=== PATIENT | female | born 1980 | race Caucasian/White ===

== ENCOUNTER 2022-06-18 22:44 | Emergency (ER) | payer MEDICAID ==
[~2022-06-18] VITALS: Ht 162.6 cm; Wt 90.7 kg
[2022-06-18 23:40] LABS: HEMOGLOBIN 11.1 gm/dl (12.3-15.3); RED BLOOD COUNT 4.46 M/UL (4.00-5.10)
[2022-06-19 00:01] LABS: BUN/CREATININE RATIO 19 (0-10)
[2022-06-19] MEDS ORDERED: ADULT LOW DOSE81 MG PO (10:47)
[2022-06-19] MEDS ORDERED: ADVIL200 MG PO (10:47)
[2022-06-19] MEDS ORDERED: SODIUM CHLORIDE (11:27)
[2022-06-19] MEDS ORDERED: KEPPRA 500 MG500 MG PO (11:27)
[2022-06-19] MEDS ORDERED: DUONEBS (11:27)
[2022-06-19] MEDS ORDERED: PULMICORT (11:27)
[2022-06-19] MEDS ORDERED: MERREM (11:27)
[2022-06-19] MEDS ORDERED: AMLODIPINE BESYL5 MG PO (11:27)
[2022-06-19] MEDS ORDERED: VANCO (11:27)
[2022-06-19] MEDS ORDERED: [UNRECOGNIZED DRUG - OTHER] (11:27)
== END 2022-06-19 13:50 | disposition left against medical advice (07) ==
LOC: ER1 22:44 → CDU 06-19 08:07 → ER1 06-19 08:07
PROVIDERS: Emergency Medicine
DX: A41.9 Sepsis, unspecified organism (principal); L98.492 Non-pressure chronic ulcer of skin of other sites with fat layer exposed; G40.909 Epilepsy, unspecified, not intractable, without status epilepticus; M65.9 Synovitis and tenosynovitis, unspecified; J44.1 Chronic obstructive pulmonary disease with (acute) exacerbation; I10 Essential (primary) hypertension; E87.6 Hypokalemia; D64.9 Anemia, unspecified; F17.210 Nicotine dependence, cigarettes, uncomplicated; Z90.49 Acquired absence of other specified parts of digestive tract; Z88.0 Allergy status to penicillin
CPT/HCPCS: 71045; 73130; 73202; 80053; 80061; 82550; 82553; 83605; 83735; 83880; 84484; 85025; 85652; 86140; 87040; 90471; 90715; 93005; 94664; 94760; 96374; 96375; 96376; 99284; J0360; J0692; J0696; J1170; J2185; J2270; J2405; J2920; J2930; J3370; J7030; J7070; Q9967